=== PATIENT | male | born 1995 | race Caucasian/White ===

== ENCOUNTER 2018-10-16 11:17 | Emergency (ER) | payer BC ==
[2018-10-16] MEDS ORDERED: Ketorolac INJ* 30 MG/ML 1 ML VIAL IV PUSH ONE (14:07)
[2018-10-16] MEDS ORDERED: Dexamethasone IV* 4 MG/ML 1 ML (4 MG) IV SLOW PU ONE (14:07)
[2018-10-16] MEDS ORDERED: NS 0.9% 1000 ML** 1,000 ML IV ONE (14:07)
--- NOTE | 2018-10-16 14:08 | ED ---
Throat Pain/Nasal Congestion - HPI Summary HPI Summary: Patient is a 22-year-old male who presents emergency department for ongoing sore throat. Patient's mother notes that he was diagnosed with the flu about 2 weeks ago started with a sore throat about a week ago. Patient was seen at an outside facility and started on amoxicillin 2-3 days ago. Patient's mother states that throat pain and swelling increased today patient presents for evaluation. Patient is able to tolerate solids and liquids. No past medical hx. No associated fever, rash, Vomiting, diarrhea, urinary sxs. Symptoms are mild-moderate in severity. No current modifying factors. - History of Current Complaint Chief Complaint: EDThroatPain Time Seen by Provider: 10/16/18 13:53 Hx Obtained From: Patient, Family/Sandwich Board Carrier - Allergies/Home Medications Allergies/Adverse Reactions: Allergies Allergy/AdvReac Type Severity Reaction Status Date / Time No Known Allergies Allergy Verified 10/17/18 07:47 Home Medications: Home Medications Amoxicillin 875 mg PO BID 10/16/18 [History Confirmed 10/16/18] Venlafaxine HCl 75 mg PO DAILY 10/16/18 [History Confirmed 10/16/18] PMH/Surg Hx/FS Hx/Imm Hx Previously Healthy: Yes Endocrine/Hematology History: Denies: Hx Diabetes, Hx Thyroid Disease Cardiovascular History: Denies: Hx Hypertension Respiratory History: Denies: Hx Asthma, Hx Chronic Obstructive Pulmonary Disease (COPD) GI History: Denies: Hx Ulcer Infectious Disease History: No Infectious Disease History: Denies: Hx Hepatitis, Hx Human Immunodeficiency Virus (HIV), Traveled Outside the [place] in Last 30 Days - Family History Known Family History: Positive: None, Non-Contributory - Social History Occupation: Employed Full-time Lives: With Family Alcohol Use: Occasionally Substance Use Type: Reports: None Smoking Status (MU): Never Smoked Tobacco Have You Smoked in the Last Year: No Review of Systems Constitutional: Negative Negative: Fever, Chills Eyes: Negative Positive: Sore Throat Cardiovascular: Negative Negative: Palpitations, Chest Pain Respiratory: Negative Negative: Shortness Of Breath, Cough Positive: Abdominal Pain. Negative: Vomiting, Diarrhea, Nausea Genitourinary: Negative Musculoskeletal: Negative Skin: Negative Neurological: Negative All Other Systems Reviewed And Are Negative: Yes Physical Exam Triage Information Reviewed: Yes Vital Signs On Initial Exam: Initial Vitals Temp Pulse Resp BP Pulse Ox 99.6 F 84 16 130/88 98 10/16/18 11:23 10/16/18 11:23 10/16/18 11:23 10/16/18 11:23 10/16/18 11:23 Vital Signs Reviewed: Yes Appearance: Positive: Well-Appearing - Pt. sitting up in bed in NAD. Appears anxious. Mother present. Skin: Positive: Warm, Dry Head/Face: Positive: Normal Head/Face Inspection Eyes: Positive: Normal, EOMI ENT: Positive: TMs normal, Other - Moderate, symmetric bilateral tonsilar edema with exudates. Uvula is midline without deviation or edema. Muffled voice noted. No drooling or pooling or secretions. Neck: Positive: Supple, Nontender. Negative: Nuchal Rigidity Respiratory/Lung Sounds: Positive: Clear to Auscultation, Breath Sounds Present Cardiovascular: Positive: Normal, RRR Neurological: Positive: Normal, CN Intact II-III Psychiatric: Positive: Affect/Mood Appropriate Diagnostics - Vital Signs Vital Signs Temp Pulse Resp BP Pulse Ox 10/16/18 13:25 103.8 F 121 16 127/67 96 10/16/18 11:23 99.6 F 84 16 130/88 98 - Laboratory Result Diagrams: 10/16/18 14:16 10/16/18 14:16 Lab Statement: Any lab studies that have been ordered have been reviewed, and results considered in the medical decision making process. EENT Course/Dx - Course Course Of Treatment: Patient presenting for evaluation of ongoing sore throat and tonsillar swelling. He is afebrile with stable vital signs. Patient is tolerating secretions. Based on his exam suspect mononucleosis. Patient was started on IV fluids and given IV Toradol and Decadron. Labs show a leukocytosis of 18.9 with elevated lymphocytes. CMP unremarkable other than elevated liver enzymes. [place] is positive. On re-exam pt. states he is feeling a bit better and feels it is easier to talk. Pt. attempted to drink water but states he is having a really hard time swallowing secondary to pain. Discussed with pt. and mother discharge home with some pain medication. Pt.'s mother is very concerned with pt. going home and is concerned he is not drinking much and is concerned swellng will get worse. Pt.'s mother requesting to consider admission. Hospitalist consulted on pt. and do not feel pt. meets admission criteria at this time. Pt. able to swallow ultram tab and is tolerating fluids. Will try magic swizzle. Plan to dc home with rx for magic swizzle, motrin and ultram. To dc amoxicillin. Close fu with PCP for re-eval and repeat lfts. To return to ER if sxs change or worsen. - Differential Diagnoses Differential Diagnoses: Epiglottitis, Laryngitis, Cachorro's Angina, Otitis Media , Periodontic Abscess, Pharyngitis - Diagnoses Provider Diagnoses: CMV mononucleosis Discharge - Sign-Out/Discharge Documenting (check all that apply): Patient Departure Patient Received Moderate/Deep Sedation with Procedure: No - Discharge Plan Condition: Improved Disposition: HOME Prescriptions: Ibuprofen 800 mg PO TID #20 tablet Magic Mouth Was-BONNIE/MAAL/LIDO* 5 ml SWISH SWAL QID #100 ml traMADol TAB* [Ultram*] 50 mg PO Q6H PRN #12 tab MDD 4 tablets PRN Reason: Pain Patient Education Materials: Mononucleosis (ED) Referrals: Norris Patel DO [Primary Care Provider] - Additional Instructions: Call PCP tomorrow for a close follow up appointment for recheck and repeat liver functions Discontinue Amoxicillin Increase fluids Take pain medication as directed No contact sports until cleared by PCP Return to ER if symptoms change or worsen - Billing Disposition and Condition Condition: IMPROVED Disposition: Home - Attestation Statements Provider Attestation: I was available for consult. This patient was seen by the N[facility]. The patient was not presented to, seen by, or examined by me. -Eleanor
[2018-10-16 14:27] LABS: Hematocrit 46 % (36-46); Hemoglobin 15.3 g/dL (14.0-18.0); Mean Corpuscular HGB Conc 33 g/dL (31-36); Mean Corpuscular Hemoglobin 28 pg (27-31); Mean Corpuscular Volume 84 fL (80-94); Mean Platelet Volume 7.3 fL (7.4-10.4); Platelet Count 193 10^3/uL (150-450); Red Blood Count 5.47 10^6 /uL (4.18-5.48); Red Cell Distribution Width 14 % (10.5-15); White Blood Count 18.9 10^3/uL (3.5-10.8)
[2018-10-16 14:49] LABS: Albumin 4.3 g/dL (3.2-5.2); Albumin/Globulin Ratio 1.4 (1-3); BUN/Creatinine Ratio 12.3 (8-20); C Reactive Protein 35.21 mg/L (<8.01); Calcium 9.2 mg/dL (8.6-10.3); EGFR African American 98.1 (>60); EGFR Non-African American 81.1 (>60); Globulin 3.1 g/dL (2-4); Potassium 4.6 mmol/L (3.5-5.0); Total Bilirubin 0.9 mg/dL (0.2-1.0); Total Protein 7.4 g/dL (6.4-8.9)
[2018-10-16 15:28] LABS: ABS Basophils 0.1 10^3/ul (0-0.2); ABS Eosinophils 0 10^3/ul (0-0.6); ABS Lymphocytes 13.6 10^3/ul (1.0-4.8); ABS Monocytes 1.7 10^3/ul (0-0.8); ABS Neutrophils 3.4 10^3/ul (1.5-7.7)
[2018-10-16 15:32] LABS: Monocytes % 3 %; Neutrophil % 16 %
[2018-10-16 15:34] LABS: Lymphocytes % 39 %; Variant Lymph % 42 % (0-6)
[2018-10-16] MEDS ORDERED: traMADol TAB* 50 MG PO ONE (17:41)
[2018-10-16 18:41] VITALS: BP 134/82
--- NOTE | 2018-10-16 19:11 | PN ---
Hospitalist Progress Note Date of Service: 10/16/18 22 yo male with PMHx depression presents to the ED with sore throat x 6 days as directed by PCP. Patient's sore throat has worsened to the point of having severe pain with swallowing food and drinks. He attempted to have soup last night, which he was able to swallow but with much difficulty. His mother noticed his speech was becoming muffled yesterday, which worsened today. He saw his PCP in office and was directed to the ED. He endorses fatigue and fever. Denies vomiting, dyspnea, and chest pain. ED Course: VS on admission to ED T 103.8 F P 121 bpm RR 16 r/min O2 96% on RA BP 127/67 In the ED, patient was given toradol and IV decadron. Patient's mother was uncomfortable with patient going home unless he was able to swallow a pill. Temperature ultimately improved to 97.0 F and pulse to 87 bpm. ED staff administered viscous lidocaine and the patient was able to swallow an ultram tab. Physical exam: General: young male comfortably sitting upright in hospital stretcher, appearing in NAD Eyes: PERRL and sclerae anicteric ENT: tonsils +2 bilaterally, with white exudates bilaterally; uvula midline; mild erythema to pharynx; no drooling, though speech is minimally muffled Neck: supple; anterior cervical lymphadenopathy Cardio: pulse regular rate and rhythm Resp: 16 resp/min; no stridor or otherwise respiratory distress Abd: abdomen nondistended Neuro: alert and oriented x 3; +5/5 strength in all extremities Pertinent labs: WBC 18.9, hgb 15.3, hct 46, plt 193, Na 128, K 4.6, Cl 102, CO2 27, BUN 14, Cr 1.14, glucose 83 AST 214, ALT 403 Monoscreen: positive Assessment/plan: 22yo male with PMHx depression presents to ED with sore throat x 6 days. 1. Mononucleosis: Patient was without stridor, his speech was minimally muffled , and he was not drooling. His sore throat and fever of 103.6 F in the setting of viral infection do not qualify for admission criteria. Discussed with patient and his mother that hospitalization comes with risks of hospital- acquired infections. Ultimately the patient was able to swallow a pill, which allows him to treat his symptoms at home. Thus the patient was comfortable with discharge to home. My attending physician, Dr. Kely Arriaga, reviewed this case and is in agreement with this plan.
[2018-10-16] MEDS ORDERED: Magic Mouth Was-BEN/MAAL/LIDO SWISH SPIT SCH (21:00)
== END 2018-10-16 18:41 | disposition home or self-care (01) ==
LOC: ED 11:17
DX: B27.10 Cytomegaloviral mononucleosis without complications (principal); F32.9 Major depressive disorder, single episode, unspecified
CPT/HCPCS: 36415; 80053; 85025; 85060; 86140; 86308; 96361; 96374; 96375; 99283; A9270-GY; J1100; J1885

== ENCOUNTER 2018-10-17 23:10 | Emergency (ER) | payer BC ==
[2018-10-18] MEDS ORDERED: NS 0.9% 1000 ML** 2,000 ML IV ONE (01:46)
[2018-10-18] MEDS ORDERED: methylPREDNISolone 125 MG* 2 ML VIAL IV ONE (01:47)
[2018-10-18] MEDS ORDERED: Ketorolac INJ* 30 MG/ML 1 ML VIAL IV PUSH ONE (01:47)
[2018-10-18 01:54] LABS: Hematocrit 45 % (36-46); Hemoglobin 14.8 g/dL (14.0-18.0); Mean Corpuscular HGB Conc 33 g/dL (31-36); Mean Corpuscular Hemoglobin 28 pg (27-31); Mean Corpuscular Volume 84 fL (80-94); Mean Platelet Volume 7.5 fL (7.4-10.4); Platelet Count 222 10^3/uL (150-450); Red Blood Count 5.36 10^6 /uL (4.18-5.48); Red Cell Distribution Width 14 % (10.5-15); White Blood Count 15.9 10^3/uL (3.5-10.8)
[2018-10-18 02:11] LABS: Albumin 4.3 g/dL (3.2-5.2); Albumin/Globulin Ratio 1.4 (1-3); BUN/Creatinine Ratio 13.7 (8-20); C Reactive Protein 28.03 mg/L (<8.01); Calcium 9.1 mg/dL (8.6-10.3); EGFR African American 83.6 (>60); EGFR Non-African American 69.1 (>60); Globulin 3.1 g/dL (2-4); Potassium 4.2 mmol/L (3.5-5.0); Total Bilirubin 0.7 mg/dL (0.2-1.0); Total Protein 7.4 g/dL (6.4-8.9)
[2018-10-18 02:21] LABS: ABS Basophils 0 10^3/ul (0-0.2); ABS Eosinophils 0 10^3/ul (0-0.6); ABS Lymphocytes 11.2 10^3/ul (1.0-4.8); ABS Monocytes 1.3 10^3/ul (0-0.8); ABS Neutrophils 3.4 10^3/ul (1.5-7.7); ABS Nucleated RBC 0 10^3/ul; Eosinophil % 0.2 %; Lymphocyte % 70.6 %; Nucleated Red Blood Cells % 0.2
--- NOTE | 2018-10-18 02:22 | ED ---
Throat Pain/Nasal Congestion - HPI Summary HPI Summary: This patient is a 22 year old M presenting to [facility] with a chief complaint of throat pain since 10/16/18, worsening today. The patient rates the pain 10/10 in severity. Patient reports worsening pain, swelled up throat, no PO. He was seen here on 10/16/18 and dx with mono. He was given Tramadol and recommended to take ibuprofen and magic mouthwash. Nothing alleviated his symptoms. Patient was also dx with the flu 2 weeks ago. - History of Current Complaint Chief Complaint: EDGeneral Time Seen by Provider: 10/18/18 01:39 Hx Obtained From: Patient, Family/Solids Control Technician - Mother Onset/Duration: Lasting Days - Since 10/16/18, Still Present, Worse Since - Today Severity: Severe - Allergies/Home Medications Allergies/Adverse Reactions: Allergies Allergy/AdvReac Type Severity Reaction Status Date / Time No Known Allergies Allergy Verified 10/17/18 23:24 PMH/Surg Hx/FS Hx/Imm Hx Previously Healthy: No - Dx with mono 10/16/18 Endocrine/Hematology History: Denies: Hx Diabetes, Hx Thyroid Disease Cardiovascular History: Denies: Hx Hypertension Respiratory History: Denies: Hx Asthma, Hx Chronic Obstructive Pulmonary Disease (COPD) GI History: Denies: Hx Ulcer - Surgical History Surgery Procedure, Year, and Place: None Infectious Disease History: No Infectious Disease History: Denies: Hx Hepatitis, Hx Human Immunodeficiency Virus (HIV), Traveled Outside the [place] in Last 30 Days - Family History Known Family History: Positive: None, Non-Contributory - Social History Alcohol Use: Occasionally Substance Use Type: Reports: None Smoking Status (MU): Never Smoked Tobacco Have You Smoked in the Last Year: No Review of Systems Positive: Sore Throat - Throat pain, Other - Swollen throat Positive: Other - No PO All Other Systems Reviewed And Are Negative: Yes Physical Exam - Summary Physical Exam Summary: VITAL SIGNS: Reviewed. GENERAL: Patient is a well-developed and nourished MALE who is lying comfortable in the stretcher. Patient is not in any acute respiratory distress. HEAD AND FACE: No signs of trauma. No ecchymosis, hematomas or skull depressions. No sinus tenderness. EYES: PERRLA, EOMI x 2, No injected conjunctiva, no nystagmus. EARS: Hearing grossly intact. Ear canals and tympanic membranes are within normal limits. MOUTH: Bilateral enlarged tonsils with exudates. Not kissing. NECK: Supple, trachea is midline, no adenopathy, no JVD, no carotid bruit, no c- spine tenderness, neck with full ROM. CHEST: Symmetric, no tenderness at palpation LUNGS: Clear to auscultation bilaterally. No wheezing or crackles. CVS: Regular rate and rhythm, S1 and S2 present, no murmurs or gallops appreciated. ABDOMEN: Soft, non-tender. No signs of distention. No rebound no guarding, and no masses palpated. Bowel sounds are normal. EXTREMITIES: FROM in all major joints, no edema, no cyanosis or clubbing. NEURO: Alert and oriented x 3. No acute neurological deficits. Speech is normal and follows commands. SKIN: Dry and warm Triage Information Reviewed: Yes Vital Signs On Initial Exam: Initial Vitals Temp Pulse Resp BP Pulse Ox 99.3 F 82 16 127/79 98 10/17/18 23:15 10/17/18 23:15 10/17/18 23:15 10/17/18 23:15 10/17/18 23:15 Vital Signs Reviewed: Yes Diagnostics - Vital Signs Vital Signs Temp Pulse Resp BP Pulse Ox 10/18/18 01:42 65 98 10/18/18 01:41 65 140/74 97 10/17/18 23:15 99.3 F 82 16 127/79 98 - Laboratory Lab Results: Lab Results 10/18/18 10/18/18 10/18/18 Range/Units 01:35 01:35 02:09 WBC 15.9 H (3.5-10.8) 10^3/uL RBC 5.36 (4.18-5.48) 10^6 /uL Hgb 14.8 (14.0-18.0) g/dL Hct 45 (36-46) % MCV 84 (80-94) fL MCH 28 (27-31) pg MCHC 33 (31-36) g/dL RDW 14 (10.5-15) % Plt Count 222 (150-450) 10^3/uL MPV 7.5 (7.4-10.4) fL Neut % (Auto) Pending Lymph % (Auto) Pending [place] % (Auto) Pending Eos % (Auto) Pending Baso % (Auto) Pending Absolute Neuts (auto) Pending Absolute Lymphs (auto) Pending Absolute Monos (auto) Pending Absolute Eos (auto) Pending Absolute Basos (auto) Pending Absolute Nucleated RBC Pending Nucleated RBC % Pending Sodium 139 (135-145) mmol/L Potassium 4.2 (3.5-5.0) mmol/L Chloride 105 (101-111) mmol/L Carbon Dioxide 27 (22-32) mmol/L Anion Gap 7 (2-11) mmol/L BUN 18 (6-24) mg/dL Creatinine 1.31 H (0.67-1.17) mg/dL Est GFR ( Amer) 83.6 (>60) Est GFR (Non-Af Amer) 69.1 (>60) BUN/Creatinine Ratio 13.7 (8-20) Glucose 101 H (70-100) mg/dL Calcium 9.1 (8.6-10.3) mg/dL Magnesium 2.0 (1.9-2.7) mg/dL Total Bilirubin 0.70 (0.2-1.0) mg/dL AST 160 H (13-39) U/L ALT 356 H (7-52) U/L Alkaline Phosphatase 118 H (34-104) U/L C-Reactive Protein 28.03 H (<8.01) mg/L Total Protein 7.4 (6.4-8.9) g/dL Albumin 4.3 (3.2-5.2) g/dL Globulin 3.1 (2-4) g/dL Albumin/Globulin Ratio 1.4 (1-3) Group A Strep Rapid Negative (Negative) Result Diagrams: 10/18/18 01:35 10/18/18 01:35 Lab Statement: Any lab studies that have been ordered have been reviewed, and results considered in the medical decision making process. Re-Evaluation - Re-Evaluation 1 Re-Evaluation Time: 04:10 Change: Improved Comment: Pt feels better. He was able to talk better now. Able to drink. His sore throat is less. Pt will be d/c home and was given prescription for liquid steroids. EENT Course/Dx - Course Course Of Treatment: This patient is a 22 year old M presenting to [facility] with a chief complaint of throat pain since 10/16/18, worsening today. On re-eval: Pt feels better. He was able to talk better now. Able to drink. His sore throat is less. Pt will be d/c home and was given prescription for liquid steroids. - Diagnoses Provider Diagnoses: Infectious mononucleosis, Sore throat Discharge - Sign-Out/Discharge Documenting (check all that apply): Patient Departure - D/C home Patient Received Moderate/Deep Sedation with Procedure: No - Discharge Plan Condition: Stable Disposition: HOME Prescriptions: PredNISOLone LIQ 5MG/ML* 60 mg PO DAILY #60 ml Patient Education Materials: Mononucleosis (ED) Referrals: Norris Patel DO [Primary Care Provider] - 2 Days Additional Instructions: PLEASE RETURN TO THE ED TO IMMEDIATELY FOR WORSENING OR CONCERNING SYMPTOMS. - Billing Disposition and Condition Condition: STABLE Disposition: Home - Attestation Statements Document Initiated by Roseanna: Yes Documenting Scribe: Vinod Delgado Provider For Whom Roseanna is Documenting (Include Credential): Cindy Almazan MD Scribe Attestation: Vinod Lui, scribed for Cindy Almazan MD on 10/18/18 at 0600. Scribe Documentation Reviewed: Yes Provider Attestation: The documentation as recorded by the Vinod dickens accurately reflects the service I personally performed and the decisions made by , Cindy Almazan MD Status of Scribe Document: Viewed
[2018-10-18 04:22] VITALS: BP 127/71
== END 2018-10-18 04:19 | disposition home or self-care (01) ==
LOC: ED 23:10
DX: B27.90 Infectious mononucleosis, unspecified without complication (principal); J02.9 Acute pharyngitis, unspecified
CPT/HCPCS: 36415; 80053; 83735; 85025; 86140; 87651; 96361; 96374; 96375; 99283; J1885; J2930